=== PATIENT | male | born 1965 | race African-American/Black ===

== ENCOUNTER 2017-10-26 05:11 | Emergency (ER) | payer OTHER ==
[~2017-10-26] VITALS: Ht 185.4 cm; Wt 101.2 kg
[2017-10-26] MEDS ORDERED: PREDNISONE 20MG TABLET PO STA (08:19)
[2017-10-26] MEDS ORDERED: IPRATROPIUM BROMIDE (0.02%) 0.5MG/2.5ML NEB HHN STA (08:19)
[2017-10-26] MEDS ORDERED: ALBUTEROL (0.083%) 2.5MG/3ML NEB HHN STA (08:19)
[2017-10-26 11:36] VITALS: BP 175/99
== END 2017-10-26 11:38 | disposition home or self-care (01) ==
LOC: ER 05:11
DX: J45.901 Unspecified asthma with (acute) exacerbation (principal); I10 Essential (primary) hypertension
CPT/HCPCS: 94640; 99285; J7512; J7611; Z7610

== ENCOUNTER 2018-04-04 14:40 | Emergency (ER) | payer OTHER ==
[~2018-04-04] VITALS: Ht 185.4 cm; Wt 100.0 kg
[2018-04-04] MEDS ORDERED: ALBUTEROL (0.083%) 2.5MG/3ML NEB HHN STA ×2 (14:56→15:05)
[2018-04-04] MEDS ORDERED: IPRATROPIUM BROMIDE (0.02%) 0.5MG/2.5ML NEB HHN STA ×2 (14:56→15:05)
[2018-04-04] MEDS ORDERED: SODIUM CHLORIDE 0.9% 1,000 ML IV ONE (15:05)
[2018-04-04] MEDS ORDERED: METHYLPREDNISOLONE SOD SUCC 125 MG/2 ML VIAL IV STA (15:05)
[2018-04-04] MEDS ORDERED: MAGNESIUM 2 G PREMIX 50 ML IV ONE (15:15)
[2018-04-04 15:43] LABS: HEMATOCRIT. 42.5 % (42.0-52.0); HEMOGLOBIN. 13.9 g/dL (14.0-18.0); MEAN CORPUSCULAR HEMOGLOBIN 24.3 pg (28.0-32.0); MEAN CORPUSCULAR VOLUME 74.5 fL (80.0-94.0); MEAN PLATELET VOLUME 9.3 fl (7.4-10.4); PLATELET 149 x1000/uL (130-400); RED CELL DISTRIBUTION WIDTH 15.7 % (11.6-14.6)
[2018-04-04 15:46] LABS: CHLORIDE 105 mEq/L (98-107)
[2018-04-04 15:48] LABS: INR 1.1; PROTHROMBIN TIME 11.6 sec (9.4-11.6)
[2018-04-04] MEDS ORDERED: MAGNESIUM SULFATE 2 GM in DEXTROSE 5% WATER 50 ML IV SCH (16:15)
[2018-04-04 16:50] VITALS: BP 164/97
[2018-04-04 17:12] LABS: PLATELET ESTIMATE NORMAL
== END 2018-04-04 18:05 | disposition home or self-care (01) ==
LOC: ER 16:18
DX: J45.901 Unspecified asthma with (acute) exacerbation (principal); I10 Essential (primary) hypertension; R07.89 Other chest pain; R94.31 Abnormal electrocardiogram [ECG] [EKG]
CPT/HCPCS: 36415; 71045; 80053; 83880; 84484; 85025; 85610; 93005; 94640; 94644; 96374; 99285; J2930; J3475; J7030; J7611; Z7610; J7060

== ENCOUNTER 2018-11-09 07:50 | Emergency (ER) | payer OTHER ==
[~2018-11-09] VITALS: Ht 185.4 cm; Wt 101.0 kg
[2018-11-09] MEDS ORDERED: PREDNISONE 20MG TABLET PO STA (11:09)
[2018-11-09] MEDS ORDERED: ALBUTEROL (0.083%) 2.5MG/3ML NEB HHN STA (11:09)
[2018-11-09] MEDS ORDERED: IPRATROPIUM BROMIDE (0.02%) 0.5MG/2.5ML NEB HHN STA (11:09)
[2018-11-09] MEDS ORDERED: AMLODIPINE 10MG TABLET PO ONE (11:15)
[2018-11-09 12:19] LABS: CHLORIDE 106 mEq/L (98-107)
[2018-11-09 12:20] LABS: BASOPHILS % 1.1 % (0.0-2.0); EOSINOPHILS % 9.6 % (0.0-5.0); HEMATOCRIT. 46.3 % (42.0-52.0); HEMOGLOBIN. 15.2 g/dL (14.0-18.0); LYMPHOCYTES % 36.9 % (20.0-50.0); MEAN CORPUSCULAR HEMOGLOBIN 24.6 pg (28.0-32.0); MEAN PLATELET VOLUME 9.7 fl (7.4-10.4); MONOCYTES % 4.1 % (2.0-8.0); NEUTROPHILS % 48.3 % (40.0-76.0); PLATELET 124 x1000/uL (130-400); RED BLOOD CELL COUNT 6.17 mill/uL (4.7-6.1); RED CELL DISTRIBUTION WIDTH 17.2 % (11.6-14.6)
[2018-11-09 13:24] VITALS: BP 159/102
== END 2018-11-09 13:29 | disposition home or self-care (01) ==
LOC: ER 07:50
DX: J45.901 Unspecified asthma with (acute) exacerbation (principal); I16.0 Hypertensive urgency; R00.1 Bradycardia, unspecified
CPT/HCPCS: 36415; 71045; 80053; 85025; 93005; 94644; 99285; J7512; J7611

== ENCOUNTER 2021-12-15 06:08 | Emergency (ER) | payer OTHER ==
[~2021-12-15] VITALS: Ht 185.4 cm; Wt 96.0 kg
[2021-12-15] MEDS ORDERED: IPRATROPIUM BROMIDE (0.02%) 0.5MG/2.5ML NEB HHN STA (07:12)
[2021-12-15] MEDS ORDERED: ALBUTEROL (0.083%) 2.5MG/3ML NEB HHN STA (07:12)
[2021-12-15] MEDS ORDERED: PREDNISONE 20MG TABLET PO STA (07:12)
[2021-12-15] MEDS ORDERED: ALBU6.7H15 INH (10:47)
[2021-12-15] MEDS ORDERED: ALBU05 NEB (10:47)
[2021-12-15] MEDS ORDERED: P50 MT (10:47)
[2021-12-15 10:58] VITALS: BP 137/97
== END 2021-12-15 10:59 | disposition home or self-care (01) ==
LOC: ER 06:46
DX: J45.901 Unspecified asthma with (acute) exacerbation (principal); I10 Essential (primary) hypertension
CPT/HCPCS: 71045; 94640; 99283; J7512; Z7610; 94003

== ENCOUNTER 2022-02-20 01:56 | Emergency (ER) | payer OTHER ==
[~2022-02-20] VITALS: Ht 185.4 cm; Wt 97.0 kg
[~2022-02-20 01:56] MED LIST: ALBU05 NEB; ALBU6.7H15 INH; P50 MT
[2022-02-20] MEDS ORDERED: ALBUTEROL (0.083%) 2.5MG/3ML NEB HHN STA (02:20)
[2022-02-20] MEDS ORDERED: PREDNISONE 20MG TABLET PO STA (02:20)
[2022-02-20] MEDS ORDERED: IPRATROPIUM BROMIDE (0.02%) 0.5MG/2.5ML NEB HHN STA (02:20)
[2022-02-20] MEDS ORDERED: NITROGLYCERIN 0.4MG TABLET SL SL PRN (02:30)
[2022-02-20] MEDS ORDERED: ASPIRIN 81MG TABLET PO ONE (02:30)
[2022-02-20 02:59] LABS: CHLORIDE 105 mEq/L (98-107)
[2022-02-20 03:03] LABS: HEMATOCRIT. 44.1 % (42.0-52.0); HEMOGLOBIN. 14.2 g/dL (14.0-18.0); MEAN CORPUSCULAR HEMOGLOBIN 23.9 pg (28.0-32.0); MEAN CORPUSCULAR VOLUME 74.2 fL (80.0-94.0); PLATELET 147 x1000/uL (130-400); RED BLOOD CELL COUNT 5.95 mill/uL (4.7-6.1); RED CELL DISTRIBUTION WIDTH 16.9 % (11.6-14.6)
[2022-02-20] MEDS ORDERED: ALBU18HF2 IH (03:58)
[2022-02-20] MEDS ORDERED: P20 MT (03:58)
[2022-02-20] MEDS ORDERED: BUDE0.5A3 NEB (03:58)
[2022-02-20 04:10] VITALS: BP 140/81
[2022-02-20 04:41] LABS: PLATELET ESTIMATE NORMAL
== END 2022-02-20 04:11 | disposition home or self-care (01) ==
LOC: ER 01:56
DX: J45.901 Unspecified asthma with (acute) exacerbation (principal); Z20.822 Contact with and (suspected) exposure to COVID-19; I10 Essential (primary) hypertension
CPT/HCPCS: 36415; 71045; 80053; 83880; 84484; 85025; 87426; 87804; 93005; 94640; 99291; C9803; J7512; Z7610

== ENCOUNTER 2022-09-08 07:09 | Emergency (ER) | payer OTHER ==
[~2022-09-08] VITALS: Ht 185.4 cm; Wt 96.0 kg
[~2022-09-08 07:09] MED LIST changes: +ALBU18HF2 IH; +BUDE0.5A3 NEB; +P20 MT
[2022-09-08 07:14] VITALS: BP 145/86
[2022-09-08] MEDS ORDERED: IBUP-2029 MT (07:57)
[2022-09-08] MEDS ORDERED: AMOX1TAB16 MT (07:57)
[2022-09-08] MEDS ORDERED: TETANUS, DIPHTHERIA, PERTUSSIS VAC/PF 0.5ML (>10YR OLD) IM ONE (08:00)
== END 2022-09-08 08:15 | disposition home or self-care (01) ==
LOC: ER 07:09
DX: S71.151A Open bite, right thigh, initial encounter (principal); W54.0XXA Bitten by dog, initial encounter; Y93.89 Activity, other specified; Y92.89 Other specified places as the place of occurrence of the external cause; Y99.8 Other external cause status; J45.909 Unspecified asthma, uncomplicated; I10 Essential (primary) hypertension; Z79.899 Other long term (current) drug therapy
CPT/HCPCS: 90471; 90715; 99283

== ENCOUNTER 2023-01-27 14:37 | Emergency (ER) | payer OTHER ==
[~2023-01-27] VITALS: Ht 185.4 cm; Wt 93.0 kg
[~2023-01-27 14:37] MED LIST changes: +AMOX1TAB16 MT; +IBUP-2029 MT
[2023-01-27 14:44] VITALS: BP 143/91
[2023-01-27] MEDS ORDERED: P50 MT (17:22)
[2023-01-27] MEDS ORDERED: NAPR-681 MT (17:22)
[2023-01-27] MEDS ORDERED: ACYC200C31 MT (17:22)
== END 2023-01-27 17:51 | disposition home or self-care (01) ==
LOC: ER 14:37
DX: B02.9 Zoster without complications (principal); J45.909 Unspecified asthma, uncomplicated; I10 Essential (primary) hypertension
CPT/HCPCS: 99281; 99283

== ENCOUNTER 2025-04-18 19:26 | Emergency (ER) | payer OTHER ==
[~2025-04-18] VITALS: Ht 185.4 cm; Wt 90.0 kg
[~2025-04-18 19:26] MED LIST changes: +ACYC200C31 MT; +NAPR-681 MT
[2025-04-18 19:53] VITALS: O2SAT 98
[2025-04-18] MEDS ORDERED: HYDR28.485 RC (21:27)
[2025-04-18] MEDS ORDERED: KETO15CR2 TP (21:27)
[2025-04-18 21:54] VITALS: BP 195/101; PULSE 62; RESP 14; TEMP 36.6; O2SAT 99
== END 2025-04-18 21:54 | disposition home or self-care (01) ==
LOC: ER 19:26
DX: R21 Rash and other nonspecific skin eruption (principal); Z79.899 Other long term (current) drug therapy
CPT/HCPCS: 99282